=== PATIENT | male | born 1970 | race Caucasian/White ===

== ENCOUNTER → 2017-12-14 | Outpatient (CLI) | payer OTHER ==
[~2017-12-14] MED LIST: ALBUTEROL SULFATE 0.083% NEB 2.5 MG/3 ML AMPUL NEB ONE
--- NOTE | 2017-12-16 13:35 | Pulmonary Function Test ---
Pulmonary Function Test Date of Procedure:: 12/14/17 INDICATION:: Cough Referring Provider: Dr. Amador Ortiz Histology Supervisor: Nichol Olivo PROJECT MANAGEMENT IT SPECIALIST - Report Spirometry: FVC 4.02 L 79% postbronchodilator 4.18 L 82% FEV1 3.20 L 77% postbronchodilator 3.33 L 80% FEV1/FVC % 80 postbronchodilator 80 predicted 82 FEF 25-75% 3.16 73% postbronchodilator 3.24 75% Impression: Study does not demonstrate obstructive ventilatory defect. Early obstructive disease may be inferred by the decrease in flow rate at the FEF- 25-75%. Study also infers that may be some restrictive ventilatory defect. Restrictive defects cannot be diagnosed on the basis of spirometry alone. If clinically indicated consider complete pulmonary function testing
== END ==
LOC: RT 10:21
PROVIDERS: ATTEND Student in an Organized Health Care Education/Training Program
DX: R05 Cough (principal)
CPT/HCPCS: 94060